=== PATIENT | female | born 1940 | race Caucasian/White ===

== ENCOUNTER 2017-01-20 07:11 | Day surgery (SDC) | payer OTHER ==
[2017-01-20] VITALS (7 sets, daily range): BP systolic 119–168; BP diastolic 65–101; PULSE 64–114; RESP 14–18; TEMP 97.8–98.2; O2SAT 96–99
[~2017-01-20] VITALS: Ht 165.1 cm; Wt 89.0 kg
[2017-01-20] MEDS ORDERED: SODIUM CHLORID 0.9% 500 ML IV SCH (07:45)
[2017-01-20] MEDS ORDERED: INSULIN HUMAN REGULAR 1,000 UNITS/10 ML VIAL SQ PRN (07:45)
[2017-01-20] MEDS ORDERED: LORazepam 1 MG TAB SL SCH (07:45)
[2017-01-20] MEDS ORDERED: SODIUM CHLORID 0.9% 500 ML INJ 500 ML IV SCH (07:45)
[2017-01-20] MEDS ORDERED: METOPROLOL TARTRATE 25 MG TAB PO PRN (07:45)
[2017-01-20] MEDS ORDERED: LACTATED RINGER'S 1000 ML IV SCH (07:45)
[2017-01-20 08:27] LABS: AUTOMATED NEUTROPHIL # 4.1 TH/MM3 (1.8-7.7); BASOPHIL # 0.1 TH/MM3 (0-0.2); BASOPHIL % 0.9 % (0.0-2.0); EOSINOPHIL # 0.1 TH/MM3 (0-0.4); EOSINOPHIL % 2.3 % (0.0-4.0); HEMATOCRIT 38.1 % (35.0-46.0); HEMO FLAGS DIFF FINAL; LYMPH % 23.7 % (9.0-44.0); LYMPHOCYTE # 1.5 TH/MM3 (1.0-4.8); MEAN CELL VOLUME 87.1 FL (80.0-100.0); MEAN CORPUSCULAR HEMOGLOBIN 30.5 PG (27.0-34.0); MEAN CORPUSCULAR HGB CONC 35.1 % (32.0-36.0); MONO % 8.9 % (0.0-8.0); NEUT % 64.2 % (16.0-70.0); PLATELET COUNT 223 TH/MM3 (150-450); RED BLOOD COUNT 4.37 MIL/MM3 (4.00-5.30); RED CELL DISTRIBUTION WIDTH 14.5 % (11.6-17.2); WHITE BLOOD COUNT 6.3 TH/MM3 (4.0-11.0)
[2017-01-20 08:35] LABS: PROTHROMBIN TIME - PATIENT 10.8 SEC (9.8-11.6)
[2017-01-20 08:40] LABS: BICARBONATE 25.2 MEQ/L (21.0-32.0); POTASSIUM 3.9 MEQ/L (3.5-5.1)
[2017-01-20] MEDS ORDERED: METO25TA3 PO (08:44)
[2017-01-20] MEDS ORDERED: DILT-64 PO (08:44)
[2017-01-20] MEDS ORDERED: PRAV20TA2 PO (08:44)
[2017-01-20] MEDS ORDERED: XARE20TA PO (08:44)
[2017-01-20] MEDS ORDERED: LISI40TA PO (08:44)
[2017-01-20] MEDS ORDERED: LEVO25TA4 PO (08:44)
[2017-01-20] MEDS ORDERED: DIGO0.12 PO (08:44)
[2017-01-20] MEDS ORDERED: LEVOFLOXACIN 500 MG PREMIX INJ 100 ML IV SCH (08:45)
[2017-01-20] MEDS ORDERED: HEPARIN SODIUM - IV 10,000 UNITS/10 ML VIAL ONE (12:10)
[2017-01-20] MEDS ORDERED: HEPARIN-D5W INJ 250 ML ONE (12:10)
[2017-01-20] MEDS ORDERED: FUROSEMIDE 40 MG/4 ML VIAL ONE (12:11)
[2017-01-20] MEDS ORDERED: ISOPROTERENOL HCL 1 MG/5 ML AMP ONE (12:11)
[2017-01-20] MEDS ORDERED: PROTAMINE SULFATE 50 MG/5 ML VIAL ONE (12:11)
[2017-01-20] MEDS ORDERED: fentaNYL CITRATE 250 MCG/5 ML AMP ONE (12:11)
[2017-01-20] MEDS ORDERED: SODIUM CHLOR 0.9% 250 ML INJ 250 ML ONE (12:12)
[2017-01-20] MEDS ORDERED: ONDANSETRON HCL 4 MG/2 ML VIAL IV PUSH ONE (16:00)
[2017-01-20] MEDS ORDERED: PROPOFOL 200 MG/20 ML AMP IV ONE (16:00)
[2017-01-20] MEDS ORDERED: METOCLOPRAMIDE HCL 10 MG/2 ML VIAL IV PRN (16:15)
[2017-01-20] MEDS ORDERED: LORazepam 2 MG/ML VIAL IV PRN (16:15)
[2017-01-20] MEDS ORDERED: SODIUM CHLOR 0.9% 250 ML INJ 250 ML IV PRN (16:15)
[2017-01-20] MEDS ORDERED: ONDANSETRON HCL 4 MG/2 ML VIAL IV PRN (16:15)
[2017-01-20] MEDS ORDERED: ATROPINE SULFATE 1 MG/ML VIAL IV PRN (16:15)
[2017-01-20] MEDS ORDERED: LIDOCAINE HCL 1% 50 ML VIAL INFIL PRN (16:15)
[2017-01-20] MEDS ORDERED: oxyCODONE/ACETAMINOPHEN 5 MG/325 MG TAB PO PRN ×2 (16:15)
[2017-01-20] MEDS ORDERED: BACITRACIN OINT 0.9 GM PKT TOP ONE (16:30)
--- NOTE | 2017-01-20 17:42 | MA ---
cc: SHUBHAM ALONSO M.D. DATE: 01/20/2017. PROCEDURES PERFORMED: Electrophysiology study, CS cannulation, 3-D mapping transeptal approach, right and left heart catheterization, radiofrequency ablation of atrial flutter and then atrial fibrillation ablation, pulmonary vein isolation, posterior wall ablation left atrial tachycardia ablation, roof line creation, floor line creation, anterior wall ablation and mitral valve isolation and cardioversion, repeat electrophysiology study on Isuprel infusion. NOTE: This was a very complex case. INDICATIONS FOR THE PROCEDURE: Mrs. Darby is a 76-year-old female with history of atrial fibrillation and emergency room visit, very symptomatic on multiple medications, on anticoagulation referred for electrophysiology study and ablation. The risks, the nature and the benefits of the procedure were clearly stated to her. The risks include pneumothorax, cardiac perforation, stroke, need for open heart surgery and even . She understood and agreed to proceed. DESCRIPTION OF THE PROCEDURE IN DETAIL: After written informed consent was obtained prior to transesophageal echocardiogram, the patient was kept on the table where she was prepped and draped in the usual sterile fashion. Conscious sedation was initiated and maintained throughout the procedure by the anesthesiologist. Once sedation was verified, the right and left inguinal areas were anesthetized with 2% Xylocaine. Using modified Seldinger technique, the left femoral vein was cannulated on three occasions and three guidewires were advanced. Over the wires, one 10, one 6 and one 7 [place] Hemaquets were advanced. An 8 suture was placed around the 10-[place] Hemaquet. Then the left femoral artery was cannulated on one occasion and one guidewire was advanced. Over the wire, a 4-[place] Hemaquet was advanced. Then the right femoral vein was cannulated on one occasion and one guidewire was advanced. Over the wire, an 8-[place] Hemaquet was advanced. Then under fluoroscopic guidance through the 6-[place] Hemaquet, I did obtain two heart veins and the quadripolar and cannulated the coronary sinus. There was tortuosity. I had to exchange the quad for a steerable quadripolar catheter from [facility]. Then the coronary sinus was cannulated after multiple attempts. Cannulation of the coronary sinus was very difficult. Then a catheter was advanced through the 7-[place] Hemaquet and placed at the level of the His. Then through the 10-[place] Hemaquet, a Cordis-Lau Actonel intracardiac echo catheter was advanced and placed at the right atrium. At this point, the patient was apparently in atrial flutter. Entrainment was performed and it was positive. Through the 8-[place] Hemaquet, a Cordis-Lau F curve 8 mm mapping radiofrequency ablation catheter was advanced. Using the [employer] Endocardial Solution Mapping System, a three-dimensional configuration of the right atrium was obtained. Then the catheter was at the critical isthmus. Radiofrequency energy was delivered. During ablation, activation changed to the left side. I did map the right atrium. Again, there was no early activation. I proceed with isolation of the coronary sinus. Then I decided to proceed with transeptal for atrial fibrillation ablation. The 8-[place] Hemaquet in the right femoral vein was exchanged for an Tejinder septal sheath that was placed all the way to the superior vena cava. Through the sheath, a Umer needle was advanced. Then the sheath, the dilator and the needle were pulled back progressively until foci engaged. Once engaged, the needle was advanced. Radiofrequency was delivered for 2 seconds. I was able to cross into the left atrium. Once the needle crossed, the dilator was advanced. Once the dilator crossed, the sheath was advanced. When the sheath crossed, the dilator and the needle were removed. Intracardiac echo showed the sheath in good position. The patient had already received 10,000 units of heparin. The goal is to keep an ACT around 350 during the ablation. Then through the sheath a [place]. Doe 20 pulse circumferential catheter was advanced. Using the [employer] Endocardial Solution Mapping System, a three-dimensional configuration of the left atrium was obtained. Points were taken at the left superior and inferior vein, right superior and inferior vein, mitral valve and appendages. Then the circumferential catheter was replaced by the [facility]. Doe TactiCath 3.5 mm irrigated-tip 65 cm mapping and radiofrequency ablation catheter. I did proceed with isolation of the mitral valve. Then the right superior and inferior veins were isolated. Then I did ablate the anterior and posterior hobbs. Then a roof line was created. The floor line was created. The patient was already in left atrial tachycardia. I did isolate the left superior and inferior vein and also I did create a mitral line. The lateral was ablated. I did ablate around the left atrial appendage. At that point, activation did not change too much. There was early activation on the left side. I decided to map the right atrium again. No significant early activation was obtained. At that point, I decided to proceed with cardioversion. A 200 sync biphasic joule was delivered that converted the patient into sinus rhythm. Then I did pace in the atrium. No tachyarrhythmia was induced. Pacing from the pulmonary vein showed no conduction. Then Isuprel was discontinued. No tachyarrhythmia was induced. At that point, the procedure was complete. All catheters were removed. Intracardiac echo showed no pericardial effusion and still good flow in the pulmonary vein. The transeptal sheath was exchanged for a 9-[place] Hemaquet. The patient is going to be transferred to the recovery room. This was a very long and complex case. No incident report. The patient tolerated procedure. The blood loss was minimal. 1. Electrocardiogram: At baseline, the patient was in atrial fibrillation. Postprocedure the patient is in sinus rhythm. 2. Basic interval: Base cycle length was around 480 milliseconds. Post ablation it was around 180, AH was around 110 and HV was around 50 milliseconds. 4. Tachyarrhythmia: Atrial fibrillation was mapped and ablated. Atrial flutter was ablated. Left atrial tachycardia was ablated. Pulmonary vein was isolated. Mitral line was created. Mitral valve was isolated. This was a very complex case. CONCLUSIONS: Successful electrophysiology study, mapping and radiofrequency of atrial fibrillation, atrial flutter ,left atrial tachyarrhythmia. COMMENTS AND RECOMMENDATIONS: The patient is going to be transferred to the telemetry unit. Be will be observed and when stable, he can be discharged home. MD JADA Martinez/ISREAL /4:18 PM /5:16 PM
[2017-01-20] MEDS ORDERED: DO NOT ADM ANY ANTICOAGULANT DRUGS XX PRN (18:00)
[2017-01-20] MEDS ORDERED: RIVAROXABAN 15 MG TAB PO SCH ×2 (18:00→21:00)
[2017-01-21] VITALS (12 sets, daily range): BP systolic 125–132; BP diastolic 69–73; PULSE 64–72; RESP 16–18; TEMP 97.6–98.4; O2SAT 96–98
[2017-01-21] MEDS ORDERED: LEVOTHYROXINE SODIUM 25 MCG TAB PO SCH (06:00)
[2017-01-21 06:46] LABS: APTT (PATIENT) 33.8 SEC (24.3-30.1); INTERNATIONAL NORMALIZED RATIO 1.2 RATIO; PROTHROMBIN TIME - PATIENT 13.1 SEC (9.8-11.6)
[2017-01-21] MEDS ORDERED: LISINOPRIL 20 MG TAB PO SCH (09:00)
[2017-01-21] MEDS ORDERED: PRAVASTATIN SOD 20 MG TAB PO SCH (09:00)
[2017-01-21] MEDS ORDERED: METOPROLOL TARTRATE 25 MG TAB PO SCH (09:00)
--- NOTE | 2017-01-21 09:17 | HHI.PR ---
Subjective Remarks Feeling better Objective Vital Signs Date Time Temp Pulse Resp B/P Pulse Ox O2 Delivery O2 Flow Rate FiO2 01/21/17 09:07 69 01/21/17 08:29 72 01/21/17 07:46 97.6 68 18 132/73 98 01/21/17 07:08 68 01/21/17 06:00 66 01/21/17 05:00 66 01/21/17 04:00 68 01/21/17 03:00 98.4 67 16 125/69 96 01/21/17 03:00 64 01/21/17 02:00 64 01/21/17 01:00 64 01/21/17 00:00 66 01/20/17 23:00 98.0 64 14 124/65 99 01/20/17 23:00 64 01/20/17 22:00 66 01/20/17 21:00 64 01/20/17 20:00 66 01/20/17 19:54 96 Nasal Cannula 2.00 01/20/17 19:00 66 01/20/17 19:00 97.8 66 16 119/68 99 01/20/17 18:00 97.7 63 16 122/63 97 Nasal Cannula 2 01/20/17 17:30 64 15 118/64 95 Nasal Cannula 2 01/20/17 17:00 65 15 119/65 98 Nasal Cannula 3 01/20/17 16:45 67 15 118/69 96 Nasal Cannula 3 01/20/17 16:30 69 15 115/65 97 Nasal Cannula 4 01/20/17 16:15 71 15 115/64 95 Nasal Cannula 4 01/20/17 16:08 98.3 74 16 116/62 93 Nasal Cannula 4 I/O 01/20/17 01/20/17 01/20/17 01/21/17 01/21/17 01/21/17 07:00 15:00 23:00 07:00 15:00 23:00 Intake Total 700 ml 480 ml Output Total 1450 ml 600 ml Balance -750 ml -120 ml Intake Oral 480 ml IV Total 100 ml Other 600 ml Output Urine Total 1450 ml 600 ml # Voids 1 Result Diagram: 01/20/17 0801/20/17 08 Imaging Alert, fully oriented, in bed, in sinus rhythm. Lungs: ventilated Heart: S1, S2 regular Abdomen: soft, no mass Ext: no edema Current Medications Medications (Trade) Dose Ordered Sig/Kelsi Route Start Time Stop Time Status Last Admin Sodium Chloride 500 ml @ 30 mls/hr [id number] IV 01/20/17 07:45 (Lr 1000 ml Inj) 1,000 ml @ 30 mls/hr Q24H IV 01/20/17 07:45 (Percocet 5-325 Mg) 1 tab Q4H PRN PO 01/20/17 16:15 (Percocet 5-325 Mg) 2 tab Q4H PRN PO 01/20/17 16:15 (Ativan Inj) 0.5 mg UNSCH PRN IV 01/20/17 16:15 01/21/17 16:14 (Atropine Inj) 0.5 mg UNSCH PRN IV 01/20/17 16:15 (Reglan Inj) 10 mg Q4H PRN IV 01/20/17 16:15 (Zofran Inj) 4 mg Q4H PRN IV 01/20/17 16:15 (Xylocaine 1% Inj (50 ml)) 10 ml UNSCH PRN INFIL 01/20/17 16:15 01/21/17 16:14 (Synthroid) 25 mcg DAILY@0600 PO 01/21/17 06:00 01/21/17 06:14 (Prinivil) 40 mg DAILY PO 01/21/17 09:00 01/21/17 08:48 (Lopressor) 25 mg DAILY PO 01/21/17 09:00 01/21/17 08:48 (Pravachol) 20 mg DAILY PO 01/21/17 09:00 (Xarelto) 15 mg DAILY@1800 PO 01/20/17 21:00 01/20/17 20:39 Miscellaneous Information ALL NURSING DEPARTME... UNSCH PRN XX 01/20/17 18:00 01/21/17 17:59 Assessment and Plan Problem List: (1) Afib Status: Acute Plan: SP Ablation, doing well. In sinus rhythm. Will be DH Follow up as scheduled Wu Harvey MD Jan 21, 2017 09:17
--- NOTE | 2017-01-21 23:27 | EKG ---
Date Performed: 01/20/2017 Time Performed: 17:37:06 PTAGE: 76 years EKG: Sinus rhythm MARKED LEFT AXIS DEVIATION ANTEROSEPTAL MYOCARDIAL INFARCTION , OF INDETERMINATE AGE MODERATE T-WAVE ABNORMALITY, CONSIDER LATERAL ISCHEMIA ABNORMAL ECG NO PREVIOUS TRACING DOCTOR: Wu Harvey Interpretating Date/Time 01/21/2017 23:25:20
== END 2017-01-21 11:24 | disposition home or self-care (01) ==
LOC: HDOC 07:11 → HDIC 07:12 → HCIN 18:24 → HDOC 01-21 11:24
PROVIDERS: ATTEND Internal Medicine Interventional Cardiology
DX: I48.0 Paroxysmal atrial fibrillation (principal); I48.92 Unspecified atrial flutter; R00.2 Palpitations; I13.0 Hypertensive heart and chronic kidney disease with heart failure and stage 1 through stage 4 chronic kidney disease, or unspecified chronic kidney disease; I50.30 Unspecified diastolic (congestive) heart failure; N18.3 Chronic kidney disease, stage 3 (moderate); I35.0 Nonrheumatic aortic (valve) stenosis; R42 Dizziness and giddiness; Z79.01 Long term (current) use of anticoagulants
CPT/HCPCS: 00537; 80048; 85002; 85025; 85610; 85730; 86850; 86900; 86901; 92960; 93005; 93613; 93623; 93656; 93657; 93662; C1730; C1731; C1732; C1759; C1766; C2630; J1644; J1940; J1956; J2405; J2720; J3010; J7050